=== PATIENT | female | born 1945 | race Caucasian/White ===

== ENCOUNTER → 2016-11-12 | Day surgery (SDC) | payer OTHER ==
[~2016-11-12] VITALS: Ht 161.3 cm; Wt 55.0 kg
[~2016-11-12] MED LIST: CALC600T10 PO; LACTATED RINGER'S 1000 ML INJ 1,000 ML ONE; LATA0.002 EACH EYE; MEPERIDINE HCL 25 MG/ML VIAL ONE; ONDANSETRON HCL 4 MG/2 ML VIAL IV PUSH ONE; PROPOFOL 200 MG/20 ML AMP IV ONE; SIMV80TA PO; VITATAB11 PO
[2016-11-12 08:05] VITALS: BP 151/89; PULSE 61; RESP 20; TEMP 97.9; O2SAT 100
--- NOTE | 2016-11-12 11:14 | MP ---
cc: CANDI HERNADEZ MD DATE OF SURGERY 11/12/2016 PREOPERATIVE DIAGNOSIS Postmenopausal bleeding, polypoid endometrium on biopsy. POSTOPERATIVE DIAGNOSIS Postmenopausal bleeding, polypoid endometrium on biopsy. OPERATION Hysteroscopy, dilation and curettage. SURGEON MD Ousmane ANESTHESIA MD Emiliana. General by mask. COMPLICATIONS None. ESTIMATED BLOOD LOSS 50 cc. INDICATIONS This 71-year-old had an episode of postmenopausal bleeding. The patient underwent an endometrial biopsy in the office showing a polypoid endometrium suggestive of endometrial polyps. The patient also had a Pap smear return with atypical cells and underwent a colposcopy which was negative. It should be noted that atypical cells were also noted in the endometrial biopsy but it was likely cervical in source since it was squamous. PROCEDURE The patient was taken to the operating room, placed supine on the operating table. After general anesthesia by LMA she was prepped and draped in dorsal lithotomy position. An open-sided speculum was placed in the vagina. The anterior lip of the cervix was grasped with a single-tooth tenaculum. The uterine cervix was dilated to accept a MyoSure LITE operative scope. The endometrial cavity was noted to be free of polyps or specific lesion as was the cervix. Therefore of the hysteroscope was removed and standard endocervical curettage followed by endometrial curettage was performed. In both cases only scant tissue returned. 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 It is likely breakage of this stricture during intercourse caused her bleeding. Advantage is taken of the anesthesia, and the stricture is dilated manually. The patient was awakened and taken to the recovery room breathing on her own. She tolerated the procedure well. Sponge, needle and instrument counts were correct. Candi Hernadez MD PMF/SSB /9:53 AM /11:02 AM MERON
[2016-11-12 11:30] VITALS: BP 122/72; PULSE 70; RESP 18; TEMP 97.8; O2SAT 97
== END | disposition home or self-care (01) ==
LOC: PHSDC 07:09
PROVIDERS: ATTEND Obstetrics & Gynecology
DX: N95.0 Postmenopausal bleeding (principal); N89.5 Stricture and atresia of vagina
CPT/HCPCS: 58558; 88305; J2175; J2405; J3010; J7120